=== PATIENT | male | born 1995 | race Two or more races ===

== ENCOUNTER 2016-06-29 19:53 | Emergency (ER) | payer SELFPAY ==
[~2016-06-29] VITALS: Ht 167.6 cm; Wt 51.7 kg
[2016-06-29] MEDS ORDERED: IBUPROFEN600 MG ORAL (20:35)
[2016-06-29 20:59] VITALS: BP 103/77
--- NOTE | 2016-06-29 21:13 | Emergency Room Report ---
History of Present Illness General Chief Complaint: Pain Source: Patient Present Illness HPI The patient is a 21-year-old male presenting for followup of left toe fracture. The patient states that he was seen and diagnosed with a fracture of the left big toe 3 weeks prior after a skateboarding accident. The patient states that he was not given any instructions for followup at that time. The patient states that he has not been bearing weight on the foot and has kept the foot in a walking shoe with kaylee tape of the fractured toe. The patient states that pain has improved and is now a 3/10 dull ache localized to the left big toe. Patient denies numbness or tingling. The patient also states that swelling has decreased. The patient denies any other symptoms. Allergies: Coded Allergies: No Known Allergies (Unverified , 06/29/16) Patient History Past Medical History: see triage record Pertinent Family History: none Reviewed Nursing Documentation: PMH: Agreed, PSxH: Agreed Nursing Documentation-PMH Past Medical History: No Stated History Review of Systems All Other Systems: negative except mentioned in HPI Physical Exam Vital Signs Date Time Temp Pulse Resp B/P Pulse Ox O2 Delivery O2 Flow Rate FiO2 06/29/16 20:03 98.1 88 16 103/67 100 Room Air Sp02 EP Interpretation: reviewed, normal General Appearance: no apparent distress, alert, GCS 15, non-toxic Head: normocephalic, atraumatic Eyes: bilateral eye PERRL, bilateral eye normal inspection Musculoskeletal: gait/station normal, normal range of motion, tender - distal L 1st toe Neurologic: alert, oriented x3, responsive, motor strength/tone normal, sensory intact, speech normal Psychiatric: judgement/insight normal, memory normal, mood/affect normal, no suicidal/homicidal ideation Skin: normal turgor, other - echymosis of L distal 1st toe Lymphatic: no adenopathy Medical Decision Making PA Attestation Dr. [email or web address] is my supervising physician. Patient management was discussed with my supervising physician Diagnostic Impression: Primary Impression: Toe fracture, left ER Course The patient is a 21-year-old male presenting for followup of left toe fracture. Ddx considered include but not limited to sprain/strain, fracture, contusion Physical exam: No apparent distress. Left foot: First toe shows ecchymosis over the ventral surface. There is mild tenderness to palpation over the distal phalanx. Full active range of motion. Sensation intact to light touch. Toe is inline with the others Normal gait The patient will be DC'ed home and will Fu with PMD. ER precautions given Last Vital Signs Date Time Temp Pulse Resp B/P Pulse Ox O2 Delivery O2 Flow Rate FiO2 06/29/16 20:59 98.1 99 16 103/77 99 06/29/16 20:03 Room Air Status: improved Disposition: HOME, SELF-CARE Condition: Improved Scripts Ibuprofen* (MOTRIN*) 600 Mg Tablet 600 MG ORAL Q8H Y for For Pain, #30 TAB 0 Refills Prov: JESUS MCCANN 06/29/16 Referrals: NOT CHOSEN [facility]/,REFERRING (PCP) Patient Instructions: Toe Fracture Additional Instructions: I discussed my findings with the patient. All questions and concerns have been answered. Treatment and medication compliance have been addressed. I advised the patient that they need to follow up with PMD in 3-5 days. Return to ED if pain remains or worsens, numbness or tingling occurs, new rash is noticed, fever is noticed, or if needed for any reason. Patient verbalized understanding of discharge instructions. JESUS MCCANN Jun 29, 2016 21:13
== END 2016-06-29 20:45 | disposition home or self-care (01) ==
LOC: EMR 20:40
DX: Z47.89 Encounter for other orthopedic aftercare (principal); S92.912A Unspecified fracture of left toe(s), initial encounter for closed fracture
CPT/HCPCS: 99283